=== PATIENT | female | born 1970 | race Caucasian/White ===

== ENCOUNTER → 2020-05-14 10:46 | Outpatient (BNVA) | payer BC, SELFPAY | PROVIDERS: Family Provider Family Medicine; PCP Family Medicine; Visit Provider Nurse Practitioner Family | DX: E11.9 Type 2 diabetes mellitus without complications (principal); Z79.899 Other long term (current) drug therapy | CPT/HCPCS: 80048; 82043; 83036 ==

== ENCOUNTER 2020-10-28 13:01 | Outpatient (CLI) | payer BC, SELFPAY ==
--- NOTE | 2020-10-28 13:30 | USCV_ITS ---
Britni Lorenzo Age: 50 Gender: F : 1970 Exam Date: 10/28/2020 13:47 Ordering Phys: Alyse Fermin-C VIKI Technologist: Pranav Gusman [place] [facility] [place]: CARDIAC MURMUR BP: 111 / 72 HR: 89 Rhythm: Sinus Technical Quality: Technically difficult study MEASUREMENTS (Male / Female) Normal Values 2D ECHO LV Diastolic Diameter PLAX 3.8 cm 4.2 - 5.9 / 3.9 - 5.3 cm LV Systolic Diameter PLAX 2.5 cm IVS Diastolic Thickness 1.6 cm 0.6 - 1.0 / 0.6 - 0.9 cm IVS Systolic Thickness 1.6 cm LVPW Diastolic Thickness 1.2 cm 0.6 - 1.0 / 0.6 - 0.9 cm LVPW Systolic Thickness 2.1 cm LVOT Diameter 2.0 cm LV Ejection Fraction 2D Teich 64.0 % LV Ejection Fraction MOD 2C 58.9 % LV Ejection Fraction 2C AL 58.9 % LA Diameter 3.7 cm LA Width 3.2 cm LA Height 3.9 cm RA Width 2.9 cm RA Height 4.1 cm Aorta at Sinotubular Diameter 2.6 cm M-MODE LV Diastolic Diameter MM 4.1 cm 4.2 - 5.9 / 3.9 - 5.3 cm LV Systolic Diameter MM 2.0 cm LV Ejection Fraction MM Teich 82.7 % IVS Diastolic Thickness MM 1.3 cm 0.6 - 1.0 / 0.6 - 0.9 cm IVS Systolic Thickness MM 1.7 cm LVPW Diastolic Thickness MM 1.2 cm 0.6 - 1.0 / 0.6 - 0.9 cm LVPW Systolic Thickness MM 1.7 cm Aortic Annulus Diameter 3.0 cm LA Ao Ratio MM 1.2 MV E Point Septal Separation 0.6 cm DOPPLER AV Peak Velocity 213.0 cm/s LVOT Peak Velocity 125.0 cm/s AV Area Cont Eq vti 2.2 cm squared AV Area Cont Eq pk 1.9 cm squared MV Area PHT 3.1 cm squared Mitral E to A Ratio 0.8 MV E' Velocity 53.0 cm/s Mitral E to MV E' Ratio 1.9 Mitral E to LV E' Lateral Ratio 11.9 Mitral E to LV E' Septal Ratio 1.0 TR Peak Velocity 103.0 cm/s TR Peak Gradient 4.2 mmHg Right Atrial Pressure 3.0 mmHg Pulmonary Artery Systolic Pressu 7.2 mmHg PV Peak Velocity 99.0 cm/s RV Acceleration Time 0.1 s RV Ejection Time 0.3 s RV AcT/ET 0.4 FINDINGS Left Ventricle Normal left ventricular size and systolic function, EF 59 %. Moderate left ventricular hypertrophy. No regional wall motion abnormalities. Grade I/IV diastolic dysfunction (abnormal relaxation filling pattern), normal to mildly elevated filling pressures. Right Ventricle The right ventricle is normal in size and function. Right Atrium The right atrium is normal in size. Left Atrium The left atrium is normal in size. Mitral Valve Thickened mitral valve. Mild mitral annular calcification. Trace mitral valve regurgitation. Aortic Valve Mild aortic valve stenosis no gross abnormalities noted with a valve area of 2.0 cm squared Tricuspid Valve Could not be visualized well Pulmonic Valve Could not be visualized well Pericardium No pericardial effusion. Aorta Normal ascending aorta dimension. CONCLUSIONS Normal left ventricular size and systolic function, EF 59 %. Moderate left ventricular hypertrophy. No regional wall motion abnormalities. Grade I/IV diastolic dysfunction (abnormal relaxation filling pattern), normal to mildly elevated filling pressures. Mild aortic valve stenosis with a valve area of 2.0 cm2. Cannot exclude bicuspid aortic valve. Thickened mitral valve. Mild mitral annular calcification. Trace mitral valve regurgitation. There is no pericardial effusion. There are no intracardiac masses. No previous study is available for comparison. He is somewhat difficult study. Consider EMILIANO, to better evaluate the aortic valve Dr Khadar Prieto MD FACC (Electronically Signed) Final Date: 28 October 2020 17:23 S
== END 2020-10-28 13:02 | disposition home or self-care (01) ==
PROVIDERS: PCP Family Medicine; Visit Provider Nurse Practitioner Family
DX: R01.1 Cardiac murmur, unspecified (principal); I08.0 Rheumatic disorders of both mitral and aortic valves
CPT/HCPCS: 80053; 80061; 82043; 83036; 93306

== ENCOUNTER 2021-02-16 09:41 | Outpatient (CLI) | payer BC, SELFPAY ==
--- NOTE | 2021-02-16 09:49 | XR_ITS ---
WS: [id number] Exam: XR KUB [id number] Date/Time of Exam: 02/16/2021 9:50 AM Reason For Exam: KIDNEY STONE There is 6.8 mm right paraspinal calcification at the level of the L3-4 disc that probably represents a stone in the right UPJ. No other calcifications are noted in the region of the kidneys. The right renal silhouette is enlarged as compared to the left. Signs of prior cholecystectomy. Small nonspecif ic left pelvic calcification. No bowel obstruction or free air. XR/XR KUB [id number] IMPRESSION: 1. 6.8 mm right paraspinal calcification most likely representing a stone at th e right UPJ. 2. No acute abdominal process noted.
== END 2021-02-16 09:42 | disposition home or self-care (01) ==
LOC: RAD 09:46
PROVIDERS: PCP Nurse Practitioner Family; Visit Provider Urology
DX: N20.0 Calculus of kidney (principal); Z20.822 Contact with and (suspected) exposure to COVID-19
CPT/HCPCS: 74018; 81003; 87635

== ENCOUNTER 2021-02-18 11:44 | Day surgery (SDC) | payer BC, SELFPAY ==
[2021-02-18] VITALS (8 sets, daily range): BP systolic 121–160; BP diastolic 70–92; PULSE 82–97; RESP 13–22; TEMP 36.2–36.9; O2SAT 93–100
--- NOTE | 2021-02-18 | SCC_ITS ---
Procedure Done: 1. Cystoscopy, right retrograde ureteropyelogram 2. Right ureteroscopy with dilation of distal ureteral stricture, laser lithotripsy, ureteral stent placement. 99.4 seconds of fluoroscopic guidance, for a cumulative dose of 56.06 mGy, was provided to Dr. Rebollar by the radiology department. C-arm images of the abdomen pelvis were saved for the patient's permanent record. [facility]
--- NOTE | 2021-02-18 11:58 | SC_ITS ---
WS: [id number] Exam: C-arm FL for Urology Date/Time of Exam: 02/18/2021 11:58 AM Reason For Exam: Right ureteroscopy AP C-arm images of the right abdomen and pelvis are submitted for evaluation. The images depict a ureteroscope and guidewire extending superiorly along the expected course of the right ureter and ending in the region of the right renal pelvis. No other significant finding on this limited study.
--- NOTE | 2021-02-18 11:58 | XR_ITS ---
WS: [id number] Exam: XR KUB [id number] Date/Time of Exam: 02/18/2021 11:58 AM Reason For Exam: Preop right ureteroscopy, right UPJ stone Comparison 02/16/2021. No bowel obstruction or free air. Again noted is a 7 mm calcification seen along the medial aspect of the right kidney and thought to represent a renal pelvic stone. It shows no change in location since previous study. Small nonspecific pelvic calcifications are noted. XR/XR KUB [id number] IMPRESSION: 1. 7 mm calcification seen along the medial aspect of the right renal silhouett e thought to represent a renal pelvic stone. No change since previous study. 2. No acute abdominal process.
[2021-02-18] MEDS: sodium chloride 0.9% 1,000 ML 30 ML IV (12:42)
[2021-02-18 13:13] LABS: Glucose Point of Care 145 mg/dL (70-110)
--- NOTE | 2021-02-18 13:24 | ANES.PREANE2 ---
Pre-Anesthetic Assessment Pre-Anesthetic Assessment: Height/Weight: Height 1.57 m Weight 117.934 kg Temp Pulse Resp BP Pulse Ox 98.5 F 97 19 H 160/92 96 02/18/21 12:14 02/18/21 12:14 02/18/21 12:14 02/18/21 12:14 02/18/21 12:14 Preop Diagnosis: Refractory right UPJ stone Proposed Procedure: Operation Date: 02/18/21 13:20 Proposed Procedures p Laser Lithotripsy 75012 22773-41 n20.1(Not Applicable) - Lalo Rebollar MD s Cystoscopy(Not Applicable) - Lalo Rebollar MD s Retrograde Pyelogram(Right) - Lalo Rebollar MD s Ureteroscopy(Not Applicable) - Lalo Rebollar MD s Ureteral Stent Placement(Not Applicable) - Lalo Rebollar MD Was Beta Renetta taken within 24 hours: N/A Was Clonidine taken within 24 hours: N/A Last intake: Intake Last Liquid Date 02/17/21 Last Liquid Time 18:30 Last Solid Date 02/17/21 Last Solid Time 18:30 Social: Social History: No alcohol and No tobacco Exam: Pre-Anes Outpt Exam: alert, oriented x 3, clear to auscultation bilaterally and regular rate & rhythm Airway: Submandibular: WNL Cervical ROM: WNL MP: 2 CV/HEM: CV/HEM: HTN Metabolic: Metabolic: DM and Morbid obesity Anesthetic Plan: ASA status: 3 Anesthesia: General Risk of > 500 ml blood loss (7ml/kg in children): No Meds/Allergies Current Medications: Current Medications Generic Name Dose Route Start Last Admin Trade Name Freq PRN Reason Stop Dose Admin Sodium Chloride 1,000 mls @ 30 ml s/hr 02/18/21 12:00 02/18/21 12:42 Sodium Chloride 0.9% IV 02/19/21 11:59 30 mls/hr .Q24H HUY Administration PFSH Anesthesia PFSH: Medical History HTN (hypertension) Obesity Right ureteral stone Surgical History Hx of section Hx of cholecystectomy Hx of tubal ligation Family History Mother Hypertension Father , AT AGE 74 Foramen ovale Stroke Grandfather Myocardial infarction Other Diabetes Glaucoma Vascular dementia Social History Smoking and tobacco status: never smoked Alcohol intake: current Alcohol intake frequency: holidays/special occasions only Marital status: Current occupational status: employed History of recent travel: No Data Anesthesia Other Labs: Laboratory Results - last 48 hr 02/18/21 13:07 POC Glucose 145 H Cardiac Studies: No Data to Display
--- NOTE | 2021-02-18 14:16 | P.HPUD_ITS ---
Surgery/Procedure H&P Update DATE OF PROCEDURE: February 18, 2021 DATE H&P PERFORMED: 02/16/21 H&P UPDATE INFORMATION: I have reviewed H&P completed within last 30 days, I have examined patient prior to procedure, No changes to prior documentation and H&P is in [facility] [place] EMR on date indicated PREOP DIAGNOSIS: Refractory right UPJ stone PLANNED PROCEDURE: Operation Date: 02/18/21 13:20 Proposed Procedures p Laser Lithotripsy 21132 85691-94 n20.1(Not Applicable) - Lalo Rebollar MD s Cystoscopy(Not Applicable) - Lalo Rebollar MD s Retrograde Pyelogram(Right) - MD lindsay Newsome Ureteroscopy(Not Applicable) - Lalo Rebollar MD s Ureteral Stent Placement(Not Applicable) - Lalo Rebollar MD
[2021-02-18] MEDS: levofloxacin-dextrose 5 % 500 MG/100 ML PREMIX 100 MG IV (14:21)
--- NOTE | 2021-02-18 15:57 | PM.OP ---
Operative Report Date of procedure: February 18, 2021 Pre-op Diagnosis: Refractory right UPJ stone Post-op Diagnosis: 1. Refractory right UPJ stone 2. Right distal ureteral stricture requiring high-pressure dilation Procedure Done: 1. Cystoscopy, right retrograde ureteropyelogram 2. Right ureteroscopy with dilation of distal ureteral stricture, laser lithotripsy, ureteral stent placement. Implants: 7 Martiniquais by 26 cm double-pigtail stent left indwelling at the completion of the procedure. No string Pathology: none sent Surgeon: Smooth Anesthesia: General Estimated blood loss: Minimal Urine output: Not measured Complications: None Findings: 1. Unexpected finding of a right distal ureteral stricture that was quite difficult to dilate. Required very high balloon pressures to adequately open enough to pass the ureteroscope. 2. The UPJ stone migrated into the kidney and was able to be accessed with flexible ureteroscopy and completely fragmented with a 200 ?m thulium superpulse laser fiber. 3. 7 Martiniquais by 26 cm double-pigtail stent left indwelling at the completion of the procedure. No string Condition: stable Disposition: PACU Brief History: Mrs. Lorenzo is a very pleasant 50-year-old white female who recently presented with severe right renal colicky type symptoms exacerbated by severe nausea. Was found to have a 8 mm stone at the right UPJ on CT scan done at [facility]. The stone showed no evidence of progression on follow-up KUB in my office. She was having trouble controlling her symptoms. She elected to proceed with endoscopy as the most readily and quickly available treatment option for the stone. Procedure: After routine preoperative evaluation examination and obtaining of informed consent she was taken to the operating suite on 02/18/2021 where general anesthesia was administered with some intubation difficulty but ultimately successful placement of endotracheal tube with use of a glide scope and stylette. She remained stable throughout with no loss of airway control.. Appropriate timeout was performed, SCDs confirmed to be functioning, preoperative antibiotics administered, beta-jt protocol confirmed. Prepped and draped in the usual sterile fashion in dorsolithotomy position paying careful attention to avoiding pressure points. 21 Martiniquais cystoscope with 30 degree lens was introduced into the urethra meatus and advanced into the bladder without difficulty. The bladder was systematically examined and found to be within normal limits. An 8 Martiniquais cone-tip catheter was intubated into the right ureteral orifice for a right retrograde ureteropyelogram demonstrating the followin. Normal distal ureter with some narrowing approximately 4 cm proximal to the ureteral orifice. The ureter proximal to that point did not appear to be dilated. The stone was encountered at the UPJ as expected. The renal pelvis proximal to that point in the calyceal system was significantly dilated. A flexible tip guidewire was then easily advanced up the RIGHT ureter bypassing the stone. There was immediate efflux of very cloudy inspissated fluid consistent with high-grade obstruction. A 15 Martiniquais 4 cm balloon was then passed in the distal ureter and dilation was initiated. There was a persistently narrowed area that was reticent to dilation. The balloon was repositioned several times but the area was persistent. Pressure was increased to 22 emilia with some dilation effect but not complete. Balloon was deflated. The offset semirigid ureteroscope was then advanced next to the guidewire but could not be easily manipulated beyond this point and then the area was dilated again this time to 24 emilia of pressure with some further dilation. A second guidewire was passed and the first was secured to the drapes as a safety wire. The ureteroscope was then advanced over the second guidewire and this time could be passed through the narrowed area which appeared to be more significantly dilated. The scope was passed all the way to the UPJ. The stone was no longer in that position but he evidence of inflammatory change where the stone had been impacted was clear. There was a large amount of inspissated fluid drained. The renal pelvis was irrigated several times to help facilitate this. Once it was confirmed the visualization could be good enough the scope was removed a second guidewire passed again and the flexible ureteroscope was advanced over the second wire with the first wire secured to the drapes as a safety wire. Contrast was injected and all calyces were inspected. The stone was encountered in the upper pole calyx. It was fragmented with a 200 ?m thulium superpulse laser fiber into a very small sand-like fragments. There was no significant bleeding or concern The renal pelvis and calyces were again inspected and no other stone or larger fragments were identified. The scope was removed under visualization and the ureter was found to be intact and in good shape except for the area of the dilation which showed typical dilation trauma. There is no through and through perforation etc. The cystoscope was then backloaded over the guidewire and a 7 Martiniquais by 26 cm double-pigtail stent was advanced without difficulty over the guidewire through the cystoscope into appropriate position as confirmed via fluoroscopy and cystoscopy. The bladder was drained and the procedure was completed. She tolerated the procedure well without complications and was awakened in the operating room and returned to recovery in stable condition. Remained stable throughout the procedure and after extubation.
--- NOTE | 2021-02-18 16:30 | ANE.PACU2 ---
Inpatient post-anesthesia follow up: Airway intact: Yes Vital signs: Temperature 97.2 F Pulse Rate 88 Respiratory Rate 17 Blood Pressure 129/77 Pulse Oximetry 96 Oxygen Delivery Me thod Room Air Oxygen Flow Rate 8 Fraction of Inspir ed Oxygen Hydration adequate: Yes Nausea and vomiting: No Pain level: 2 Mental status: Baseline
--- NOTE | 2021-02-18 17:26 | SUR.PHASEII ---
patient re assessed by doctor Divina. Airway clear no dyspnea noted.
== END 2021-02-18 17:55 | disposition home or self-care (01) ==
PROVIDERS: PCP Nurse Practitioner Family; Visit Provider Urology
PROC: (CPT 52356; principal; 2021-02-18 13:00)
PROC: 0TJB8ZZ Inspection of Bladder, Via Natural or Artificial Opening Endoscopic (ICD-10-PCS; CPT 52000; 2021-02-18 13:00)
PROC: (CPT 74420; 2021-02-18 13:00)
PROC: 0TJ98ZZ Inspection of Ureter, Via Natural or Artificial Opening Endoscopic (ICD-10-PCS; CPT 52351; 2021-02-18 13:00)
PROC: (CPT 50605; 2021-02-18 13:00)
DX: N20.1 Calculus of ureter (principal); I10 Essential (primary) hypertension; E11.9 Type 2 diabetes mellitus without complications; E66.01 Morbid (severe) obesity due to excess calories; Z68.42 Body mass index [BMI] 45.0-49.9, adult; Z79.84 Long term (current) use of oral hypoglycemic drugs
CPT/HCPCS: 52356; 36416; 74018; 76000; 82962; C2625; J0330; J1100; J1956; J2250; J2370; J2405; J2704; J2710; J3010; J3490; J7030

== ENCOUNTER 2021-03-05 07:32 | Outpatient (CLI) | payer BC, SELFPAY ==
--- NOTE | 2021-03-05 07:30 | XR_ITS ---
WS: [id number] KUB, AP view, 03/05/2021 Clinical Data: URETERAL STONE Comparison: KUB, 02/18/2021. Findings: No abnormal intraabdominal masses or calcifications are seen. There is no dilatated small bowel or ev idence of obstruction. A right ureteral stent is in good position. The 0.7 cm calcification adjacent to the right renal pelv is is not seen. XR/XR KUB [id number] Impression: 1. Right ureteral stent. 2. 0.7 cm proximal calcification not seen
== END 2021-03-05 07:33 | disposition home or self-care (01) ==
LOC: RAD 07:34
PROVIDERS: PCP Nurse Practitioner Family; Visit Provider Urology
DX: N20.1 Calculus of ureter (principal); Z96.0 Presence of urogenital implants
CPT/HCPCS: 74018; 81003; 82365; 88300

== ENCOUNTER → 2021-03-19 08:30 | Outpatient (BNVA) | payer BC, SELFPAY | PROVIDERS: PCP Nurse Practitioner Family; Visit Provider Urology | DX: N20.1 Calculus of ureter (principal); Z96.0 Presence of urogenital implants; N13.5 Crossing vessel and stricture of ureter without hydronephrosis; I10 Essential (primary) hypertension; E11.9 Type 2 diabetes mellitus without complications | CPT/HCPCS: 81003 ==

== ENCOUNTER 2021-06-03 10:53 | Outpatient (CLI) | payer BC, SELFPAY ==
--- NOTE | 2021-06-03 11:00 | CT_ITS ---
WS: [id number] CT CALCIUM SCORE REASON FOR VISIT: Z82.49 - Family history of ischemic heart disease. Coronary artery disease risk as sessment COMPARISON: None TECHNIQUE: Noncontrast coronary CT in combination with quantitative analysis performed on a separate workstation were used to determine CACS (Agatston score) TOTAL EXAM DOSE: 94.64 mGy.cm ECG GATING: Prospective SCAN RANGE: Aortic arch to inferior heart. COMPLICATIONS: None FINDINGS: Technical Quality/Examination Quality: Good OVERALL SCORES Total calcium score: 24 There are a few scattered calcifications within the coronary arteries including the LEFT anterior liat cending and the RIGHT coronary artery. Percentile: 80 % ARTERY SCORES Left main coronary artery: 0 Left anterior descending artery: 9 Left circumflex artery: 0 Right coronary artery: 19 MINIMAL: 1-10 MILD: 11-100 MODERATE: 101-400 SEVERE:>400 CT/CT heart w calcium score 00091 IMPRESSION: Total calcium score of 20. GRADING OF CORONARY ARTERY DISEASE (BASED ON TOTAL CALCIUM SCORE) NO EVIDENCE OF CAD: 0 calcium score
== END 2021-06-03 10:54 | disposition home or self-care (01) ==
LOC: RAD 10:56
PROVIDERS: PCP Nurse Practitioner Family; Visit Provider Internal Medicine Cardiovascular Disease
DX: E11.9 Type 2 diabetes mellitus without complications (principal); Z82.49 Family history of ischemic heart disease and other diseases of the circulatory system; I10 Essential (primary) hypertension
CPT/HCPCS: 75571

== ENCOUNTER → 2021-07-15 09:08 | Outpatient (BNVA) | payer BC, SELFPAY | PROVIDERS: PCP Nurse Practitioner Family; Visit Provider Nurse Practitioner Family | DX: E11.9 Type 2 diabetes mellitus without complications (principal); E78.5 Hyperlipidemia, unspecified; I10 Essential (primary) hypertension | CPT/HCPCS: 80053; 80061; 83036 ==

== ENCOUNTER 2021-09-27 07:31 | Outpatient (CLI) | payer BC, SELFPAY ==
--- NOTE | 2021-09-27 07:40 | XR_ITS ---
WS: [id number] KUB, AP view, 09/27/2021 Clinical Data: RIGHT URETERAL STONE Comparison: KUB, 03/05/2021. Findings: No abnormal intraabdominal masses or calcifications are seen. There is no dilatated small bowel or ev idence of obstruction. The right ureteral stent has been removed. There are clips in the right upper quadrant from a cholecy stectomy. XR/XR KUB [id number] Impression: Negative KUB.
== END 2021-09-27 07:32 | disposition home or self-care (01) ==
PROVIDERS: PCP Nurse Practitioner Family; Visit Provider Urology
DX: N20.1 Calculus of ureter (principal)
CPT/HCPCS: 74018; 81003

== ENCOUNTER → 2022-11-17 10:34 | Outpatient (BNVA) | payer OTHER, SELFPAY | PROVIDERS: PCP Nurse Practitioner Family; Visit Provider Nurse Practitioner Family | DX: E11.9 Type 2 diabetes mellitus without complications (principal); E78.5 Hyperlipidemia, unspecified; I10 Essential (primary) hypertension | CPT/HCPCS: 80053; 80061; 83036 ==

== ENCOUNTER → 2022-12-23 10:05 | Outpatient (BNVA) | payer OTHER, SELFPAY | PROVIDERS: PCP Nurse Practitioner Family; Visit Provider Nurse Practitioner Family | DX: E11.9 Type 2 diabetes mellitus without complications (principal); E78.5 Hyperlipidemia, unspecified | CPT/HCPCS: 80076; 82550 ==

== ENCOUNTER → 2023-03-03 09:45 | Outpatient (BNVA) | payer OTHER, SELFPAY | PROVIDERS: PCP Nurse Practitioner Family; Visit Provider Nurse Practitioner Family | DX: I10 Essential (primary) hypertension (principal); E11.9 Type 2 diabetes mellitus without complications | CPT/HCPCS: 80053; 83036 ==

== ENCOUNTER → 2023-03-10 08:57 | Outpatient (BNVA) | payer OTHER, SELFPAY | PROVIDERS: PCP Nurse Practitioner Family; Visit Provider Nurse Practitioner Family | DX: E87.6 Hypokalemia (principal) | CPT/HCPCS: 84132 ==

== ENCOUNTER → 2023-06-02 08:42 | Outpatient (BNVA) | payer OTHER, SELFPAY | PROVIDERS: PCP Nurse Practitioner Family; Visit Provider Nurse Practitioner Family | DX: I10 Essential (primary) hypertension (principal); E11.9 Type 2 diabetes mellitus without complications; E78.5 Hyperlipidemia, unspecified | CPT/HCPCS: 80053; 80061; 82043; 83036 ==

== ENCOUNTER → 2023-12-13 08:32 | Outpatient (BNVA) | payer OTHER, SELFPAY | PROVIDERS: PCP Nurse Practitioner Family; Visit Provider Nurse Practitioner Family | DX: E11.9 Type 2 diabetes mellitus without complications (principal); I10 Essential (primary) hypertension | CPT/HCPCS: 80053; 80061; 83036 ==

== ENCOUNTER → 2024-02-20 15:38 | Outpatient (BNVA) | payer OTHER, SELFPAY | PROVIDERS: PCP Nurse Practitioner Family; Visit Provider Nurse Practitioner Family | DX: L91.8 Other hypertrophic disorders of the skin (principal); L98.9 Disorder of the skin and subcutaneous tissue, unspecified | CPT/HCPCS: 88305 ==

== ENCOUNTER → 2024-06-24 09:52 | Outpatient (BNVA) | payer OTHER, SELFPAY | PROVIDERS: PCP Nurse Practitioner Family; Visit Provider Nurse Practitioner Family | DX: I10 Essential (primary) hypertension (principal); E11.9 Type 2 diabetes mellitus without complications; E78.2 Mixed hyperlipidemia | CPT/HCPCS: 80053; 80061; 82043; 83036 ==

== ENCOUNTER → 2025-05-26 09:24 | Outpatient (BNVA) | payer OTHER, SELFPAY | PROVIDERS: PCP Nurse Practitioner Family; Visit Provider Nurse Practitioner Family | DX: I10 Essential (primary) hypertension (principal); E11.9 Type 2 diabetes mellitus without complications; E78.2 Mixed hyperlipidemia | CPT/HCPCS: 80053; 80061; 83036 ==